=== PATIENT | male | born 1965 | race Caucasian/White ===

== ENCOUNTER 2018-02-26 23:02 | Emergency (ER) | payer OTHER ==
[2018-02-26] MEDS: morphine 10 MG INJ IM (23:58)
[2018-02-27] MEDS ORDERED: LIDOCAINE 1%/EPI (MDV) 50 ML INJ INJ
[2018-02-27] MEDS: LIDOCAINE 1%/EPI (1:100,000) (MDV) 20 ML INJ (00:12)
== END 2018-02-27 01:21 | disposition home or self-care (01) ==
LOC: FTE 23:02
DX: L02.212 Cutaneous abscess of back [any part, except buttock and flank] (principal); I10 Essential (primary) hypertension; E11.9 Type 2 diabetes mellitus without complications; Z79.82 Long term (current) use of aspirin; Z79.84 Long term (current) use of oral hypoglycemic drugs; Z98.61 Coronary angioplasty status
CPT/HCPCS: 10060; 96372; 99284-25

== ENCOUNTER 2018-02-28 22:25 | Emergency (ER) | payer OTHER | END 2018-02-28 23:02 | disposition home or self-care (01) | LOC: FTE 22:25 | DX: Z48.01 Encounter for change or removal of surgical wound dressing (principal) | CPT/HCPCS: 99281 ==